=== PATIENT | female | born 1980 | race Caucasian/White ===

== ENCOUNTER 2020-01-23 15:38 | Emergency (ER) | payer BC ==
[~2020-01-23] VITALS: Ht 152.4 cm; Wt 81.7 kg
[2020-01-23] MEDS ORDERED: NAPROSYN500 MG PO (17:19)
[2020-01-23] MEDS ORDERED: NORFLEX100 MG PO (17:19)
[2020-01-23 18:00] VITALS: BP 158/92
== END 2020-01-23 18:00 | disposition home or self-care (01) ==
LOC: ER 15:38
DX: S39.012A Strain of muscle, fascia and tendon of lower back, initial encounter (principal); X58.XXXA Exposure to other specified factors, initial encounter; Y93.89 Activity, other specified; Y92.89 Other specified places as the place of occurrence of the external cause; Y99.8 Other external cause status